=== PATIENT | male | born 1935 | race Caucasian/White ===

== ENCOUNTER 2018-10-18 14:17 | Outpatient (CLI) | payer MEDICARE, OTHER ==
[~2018-10-18 14:17] MED LIST: ALBU6.7H9 INH; ASPI81TA52 PO; FINA5TAB42 PO; FLUO40CA11 PO; FORM12CA IH; GUAI400T91 PO; HYDR-4070 PO; LORA10TA7 PO; METO25TA6 PO; MOME0.242 IH; NAPR220C15 PO; NITR0.4T SL; OMEG1CAP2 PO; OMEP-50 PO; ONDA4TAB12 SL; SACC250C PO; TERA5CAP4 PO; UBID1CAP54 PO
== END 2018-10-18 23:59 | disposition home or self-care (01) ==
LOC: RAD 14:17
PROVIDERS: ATTEND Family Medicine
DX: R13.12 Dysphagia, oropharyngeal phase (principal); G20 Parkinson's disease; R49.0 Dysphonia; I10 Essential (primary) hypertension; J44.9 Chronic obstructive pulmonary disease, unspecified; Z87.891 Personal history of nicotine dependence; Z79.899 Other long term (current) drug therapy
CPT/HCPCS: 74230

== ENCOUNTER 2020-04-07 19:26 | Emergency (ER) | payer MEDICARE, OTHER ==
[~2020-04-07] VITALS: Ht 172.7 cm; Wt 62.0 kg
[~2020-04-07 19:26] MED LIST changes: +BISA10SU64 RC; +BUDE0.5A11 NEB; +CARB1TAB23 PO; +CARB1TAB42 PO; +CLOB15CR11 TOP; -FORM12CA IH; +HYDR-3965 PO; -HYDR-4070 PO; -MOME0.242 IH; +MYL80T PO; -NAPR220C15 PO; -OMEG1CAP2 PO; -OMEP-50 PO; -ONDA4TAB12 SL; +PANT-47 PO; +POLY17PO10 PO; +PRAM2.252 PO; -SACC250C PO; +SENN-263 PO; +SERIN IH; +fluticasone spray
[2020-04-07] MEDS ORDERED: ipratropium/albuterol 3ml nebule NEB PRN (20:00)
[2020-04-07] MEDS ORDERED: ipratropium/albuterol 3ml nebule NEB ONE (20:00)
[2020-04-07 20:03] LABS: BASOPHILS # (AUTO) 0.2 X10'3 (0-0.2); BASOPHILS % (AUTO) 0.6 % (0-1); EOSINOPHILS # (AUTO) 1.1 X10'3 (0-0.9); EOSINOPHILS % (AUTO) 2.7 % (0-6); HEMATOCRIT 31.3 % (42.0-52.0); HEMOGLOBIN 10.2 g/dl (14.0-17.9); LYMPHOCYTES # (AUTO) 34.4 X10'3 (1.1-4.8); LYMPHOCYTES % (AUTO) 81.6 % (21-51); MEAN CORPUSCULAR HEMOGLOBIN 30.5 PG (27.0-31.0); MEAN CORPUSCULAR HGB CONC 32.6 g/dL (33.0-36.5); MEAN CORPUSCULAR VOLUME 93.8 FL (78-98); MEAN PLATELET VOLUME 8.1 FL (7.4-10.4); MONOCYTES # (AUTO) 0.2 X10'3 (0-0.9); MONOCYTES % (AUTO) 0.4 % (2-12); NEUTROPHILS # (AUTO) 6.2 X10'3 (1.8-7.7); NEUTROPHILS % (AUTO) 14.7 % (42-75); PLATELET COUNT 177 X10'3 (140-440); RED BLOOD COUNT 3.34 X10'6 (4.70-6.10); RED CELL DISTRIBUTION WIDTH 15.5 % (11.5-14.5)
[2020-04-07 20:09] LABS: WHITE BLOOD COUNT 42.2 X10'3 (4.5-11.0)
[2020-04-07 20:12] LABS: ALANINE AMINOTRANSFERASE 7 U/L (12-78); ALBUMIN 2.7 G/DL (3.4-5.0); ALBUMIN/GLOBULIN RATIO 0.8 (1.1-1.5); ALKALINE PHOSPHATASE 92 IU/L (46-116); ANION GAP 8 (8-16); ASPARTATE AMINO TRANSFERASE 17 U/L (10-37); BILIRUBIN,TOTAL 0.5 MG/DL (0.1-1.0); BLOOD UREA NITROGEN 41 MG/DL (7-18); BUN/CREATININE RATIO 24.7 (5.4-32.0); CALCIUM 9.1 MG/DL (8.5-10.1); CHLORIDE 96 MMOL/L (99-107); CREATININE 1.66 MG/DL (0.60-1.10); GLUCOSE 131 MG/DL (70-104); POTASSIUM 5.6 MMOL/L (3.5-5.1); SODIUM 127 MMOL/L (135-145); TOTAL CARBON DIOXIDE 22.6 MMOL/L (24-32); TOTAL PROTEIN 5.9 G/DL (6.4-8.2); eGFR 39 ML/MIN
--- NOTE | 2020-04-07 20:24 | NUR ---
Dr. Contreras notified of troponin result
--- NOTE | 2020-04-07 20:30 | NUR ---
Jose [phone] Reports that pt had COVID 19 3-4 weeks ago
--- NOTE | 2020-04-07 21:32 | NUR ---
Pt had conversation with Dr, he does not wish to stay in the hospital and understands that he could spend the night for admission and get more testing. He declines and states he will come back if he gets worse.
--- NOTE | 2020-04-07 21:53 | NUR ---
Attempting to get ride home for pt
--- NOTE | 2020-04-07 22:04 | NUR ---
Report given to RN at [facility].
[2020-04-07 22:15] LABS: TOTAL CELLS COUNTED 100
[2020-04-07 22:16] LABS: PLATELET ESTIMATE NORMAL
[2020-04-07 22:18] LABS: BURR CELLS 1+; POLYCHROMASIA FEW
[2020-04-07 22:19] LABS: SMUDGE CELLS 1+
--- NOTE | 2020-04-07 22:20 | NUR ---
Spoke with pt, reviewed what may happen if pt goes home, risks included. Pt verbalizes understanding and states he desires to go home. Pt complains of pain in arms and legs due to need for nightly Carvidopa for his parkinsons. Pt stable vitals on 2L NC with spo2 of 97%. Pt states he has an inhaler at home for any wheezes as well as oxygen. Pt given consent for record release so [facility] can review lab work and discharge summary.
[2020-04-07 22:43] VITALS: BP 93/65
[2020-04-08] MEDS ORDERED: HYDR-4070 PO (15:51)
[2020-04-08] MEDS ORDERED: MELO-102 PO (15:52)
[2020-04-08] MEDS ORDERED: UBID100C45 PO (15:54)
[2020-04-08] MEDS ORDERED: PRAM0.122 PO (15:57)
[2020-04-08] MEDS ORDERED: BUDE180A INH (15:58)
[2020-04-08] MEDS ORDERED: FLUT16SP2 BOTHNARES (16:02)
[2020-04-08] MEDS ORDERED: ALBU18HF2 INH (16:04)
[2020-04-08] MEDS ORDERED: DOCU100C40 PO (16:09)
[2020-04-08] MEDS ORDERED: ROTI1PAT10 TOP (16:28)
== END 2020-04-07 22:46 | disposition home or self-care (01) ==
LOC: ER 19:26
DX: J44.9 Chronic obstructive pulmonary disease, unspecified (principal); R06.02 Shortness of breath; R07.89 Other chest pain; R05 Cough; I10 Essential (primary) hypertension; M19.90 Unspecified osteoarthritis, unspecified site; Z79.82 Long term (current) use of aspirin; Z79.899 Other long term (current) drug therapy
CPT/HCPCS: 36415; 71045; 80053; 83605; 83880; 84145; 84484; 85007; 85025; 87040; 93005; 94640; 94760; 99285